=== PATIENT | male | born 1955 | race Caucasian/White ===

== ENCOUNTER → 2017-01-17 | Outpatient (CLI) | payer MEDICARE, OTHER ==
--- NOTE | 2017-01-17 08:29 | CT ---
EXAMINATION TYPE: CT chest w con DATE OF EXAM: 01/17/2017 COMPARISON: August 10, 2015 HISTORY: Multiple lung nodules CT DLP: 602.2 mGycm Automated exposure control for dose reduction was used. CONTRAST: CT scan of the chest is performed with IV Contrast, patient injected with 100 mL of Omnipaque 300. FINDINGS: LUNGS: Again noted are scattered subpleural plaques some which are calcified. There is parenchymal sc arring in the region of the right middle lobe and lingula. Stable 8 mm nodular density in the region of the lingula. No suspicious nodules or masses are identified at this point in time. No evidence for infiltrate or pleural effusion. MEDIASTINUM: There are no greater than 1 cm hilar or mediastinal lymph nodes. No pericardial effusi on is seen. Thoracic aorta is of normal caliber. The heart is not enlarged. UPPER ABDOMEN: No significant abnormality appreciated. OTHER: No additional significant abnormality is seen. IMPRESSION: 1. Asbestos-related pleural disease. 2. Stable lung nodularity.
== END | disposition home or self-care (01) ==
LOC: RADCTMAIN 07:46
PROVIDERS: ATTEND Internal Medicine Critical Care Medicine
DX: J94.8 Other specified pleural conditions (principal); R91.8 Other nonspecific abnormal finding of lung field; Z91.018 Allergy to other foods
CPT/HCPCS: 71260; Q9967

== ENCOUNTER → 2017-06-25 | Outpatient (CLI) | payer MEDICARE, OTHER ==
--- NOTE | 2017-06-29 14:01 | HM ---
HOLTER MONITOR REPORT A 48-Holter monitor. DATE OF THE STUDY: June 25, 2017. INDICATION OF THE STUDY: Heart racing. The patient was monitored for 48 hours. The baseline rhythm appeared to be a sinus mechanism with a minimum heart rate of 46 beats per minute, max heart rate 115 beats per minute, average heart rate of 67 beats per minute. Ventricular ectopic events were reported in less than 1% of the total beat count. Supraventricular ectopic events were also reported in less than 1% of the total beat count. The patient had multiple episodes of atrial tachycardia noted. No evidence of sinus pause or sinus arrest. The patient reported no symptoms. CONCLUSIONS: 1. Sinus rhythm as a baseline mechanism. 2. Rare ventricular ectopic events. 3. Rare supraventricular ectopic events. 4. No evidence of sinus pause or sinus arrest. 5. The patient had multiple episodes of atrial tachycardia noted. MMODL / IJN: [id number] /
== END | disposition home or self-care (01) ==
LOC: RADECHMAIN 13:12
PROVIDERS: ATTEND Internal Medicine Cardiovascular Disease
DX: R00.8 Other abnormalities of heart beat (principal); R07.89 Other chest pain; I25.10 Atherosclerotic heart disease of native coronary artery without angina pectoris
CPT/HCPCS: 93225; 93226

== ENCOUNTER → 2017-07-30 | Outpatient (CLI) | payer MEDICARE, OTHER ==
[2017-07-30 14:42] LABS: Basophils # (A) 0.1 k/uL (0-0.2); Basophils % (A) 1 %; Eosinophils # (A) 0.3 k/uL (0-0.7); Eosinophils % (A) 2 %; HCT 44.9 % (39.0-53.0); HGB 14.6 gm/dL (13.0-17.5); Lymphocytes # (A) 3.1 k/uL (1.0-4.8); Lymphocytes % (A) 27 %; MCHC 32.5 g/dL (31.0-37.0); Mean Platelet Volume 8.6; Monocytes % (A) 9 %; Neutrophils # (A) 6.8 k/uL (1.3-7.7); Neutrophils % (A) 59 %; Platelet Count 205 k/uL (150-450); RBC 5.04 m/uL (4.30-5.90); RDW 12.5 % (11.5-15.5); WBC 11.5 k/uL (3.8-10.6)
[2017-07-30 16:27] LABS: Erythrocyte Sedimentation Rate 7 mm/hr (0-15)
== END | disposition home or self-care (01) ==
LOC: LABWHC1 13:59
PROVIDERS: ATTEND Orthopaedic Surgery
DX: S41.002A Unspecified open wound of left shoulder, initial encounter (principal)
CPT/HCPCS: 36415; 85025; 85652; 86140

== ENCOUNTER 2018-08-01 01:19 | Emergency (ER) | payer MEDICARE, OTHER ==
[2018-08-01 01:25] VITALS: RESP 16; TEMP 98.2
[2018-08-01] MEDS ORDERED: RX INFO: IV CONTRAST WAS GIVEN 1 EACH MISC MISCELLANE PRN (01:43)
--- NOTE | 2018-08-01 01:49 | ED ---
Skin/Abscess/FB HPI - General Chief complaint: Skin/Abscess/Foreign Body Stated complaint: infection Time Seen by Provider: 08/01/18 01:29 Source: patient, EMS Mode of arrival: EMS Limitations: no limitations - History of Present Illness Initial comments: 63-year-old male patient presents to the emergency department today for evaluation of drainage from a wound to the left shoulder. Patient states that he had left shoulder "repair" approximately 5 years ago. States that at the beginning of July a small wound opened and started to drain pus. Patient states that he has been squeezing the pus out on a daily basis but today started to get eileen blood. Patient denies any pain or stiffness to the shoulder. He denies any fevers or chills with this. Denies any numbness or tingling to the extremity. Patient states he did have an appointment with orthopedics but he missed it 4 times and he is on a waiting list. He has not taking any antibiotics for this. Patient denies any recent rash, shortness breath, chest pain, abdominal pain, nausea, vomiting, diarrhea, constipation, back pain, dizziness, weakness, hematuria, dysuria, urinary urgency, urinary frequency, headache, visual changes, or any other complaints. - Related Data Home Medications Medication Instructions Recorded Confirmed Albuterol Sulfate [Proair Hfa] 1 - 2 puff INHALATION RT-Q6H PRN 11/18/14 Atenolol [Tenormin] 25 mg PO DAILY 11/18/14 10/03/15 Budesonide-Formot 160-4.5 Mcg 2 puff INHALATION RT-BID 11/18/14 10/03/15 [Symbicort 160-4.5 Mcg Inhaler] traZODone HCL [Oleptro ER] 50 mg PO HS 11/18/14 10/03/15 Albuterol Sulfate [Proair Hfa] 2 puff INHALATION DIRECTED 10/03/15 10/03/15 Simvastatin [Zocor] 20 mg PO HS 10/03/15 10/03/15 risperiDONE [RisperDAL] 2 mg PO HS 10/03/15 10/03/15 Previous Rx's Medication Instructions Recorded Hydrocodone/Acetaminophen [[place]fluence 1 tab PO Q6HR PRN #15 tab 10/03/15 5-325] methylPREDNISolone [Medrol Dose 4 mg PO DIRECTED #1 pack 10/03/15 Pack] Allergies Allergy/AdvReac Type Severity Reaction Status Date / Time No Known Allergies Allergy Verified 08/01/18 01:25 Review of Systems ROS Statement: Those systems with pertinent positive or pertinent negative responses have been documented in the HPI. ROS Other: All systems not noted in ROS Statement are negative. Past Medical History Past Medical History: COPD, Diabetes Mellitus, Hyperlipidemia, Hypertension Additional Past Medical History / Comment(s): EXPOSURE TO ASBESTOS History of Any Multi-Drug Resistant Organisms: None Reported Past Surgical History: Joint Replacement, Orthopedic Surgery Additional Past Surgical History / Comment(s): HAND KNEE Past Psychological History: Depression Smoking Status: Current every day smoker Past Alcohol Use History: None Reported Past Drug Use History: None Reported - Past Family History Mother Family Medical History: Diabetes Mellitus, Myocardial Infarction ([place]) General Exam Limitations: no limitations General appearance: alert, in no apparent distress, other (Physical well- developed, well-nourished adult male patient in no acute distress. Vital signs upon presentation are temperature 98.2F, pulse 76, respirations 16, blood pressure 143/82, pulse ox 93% on room air.) Eye exam: Present: normal appearance, PERRL, EOMI. Absent: scleral icterus, conjunctival injection, periorbital swelling ENT exam: Present: normal exam, normal oropharynx, mucous membranes moist Respiratory exam: Present: normal lung sounds bilaterally. Absent: respiratory distress, wheezes, rales, rhonchi, stridor Cardiovascular Exam: Present: regular rate, normal rhythm, normal heart sounds. Absent: systolic murmur, diastolic murmur, rubs, gallop, clicks GI/Abdominal exam: Present: soft, normal bowel sounds. Absent: distended, tenderness, guarding, rebound, rigid Extremities exam: Present: full ROM, normal capillary refill, other (Patient has purplish discoloration to the left shoulder with a healed surgical scar. Patient has small pinhole type wound noted to the anterior shoulder that is draining bloody purulent fluid. There is no erythema or swelling noted.). Absent: normal inspection, tenderness, pedal edema, joint swelling, calf tenderness Neurological exam: Present: alert, oriented X3, CN II-XII intact Psychiatric exam: Present: normal affect, normal mood Skin exam: Present: warm, dry, intact, normal color. Absent: rash Course Vital Signs 08/01/18 01:21 Temperature 98.2 F Pulse Rate 76 Respiratory 16 Rate Blood Pressure 143/82 O2 Sat by Pulse 93 L Oximetry Medical Decision Making - Medical Decision Making 63-year-old male patient presents to emergency department today for evaluation of drainage from a wound to the left shoulder. Physical examination did reveal bloody drainage coming from the left shoulder. She denies fevers, chills, pain or swelling to the area. He states that this has been going on for over a month. Did perform labs White blood cell count is normal. Lactic acid is normal. Patient is afebrile with normal vital signs. We will start Keflex and discharged home. He is instructed to follow-up with Dr. Doherty for further evaluation. Return parameters were discussed in detail. He verbalizes understanding and agrees with this plan. - Lab Data Result diagrams: 08/01/18 02:00 08/01/18 02:00 Lab Results 08/01/18 08/01/18 08/01/18 Range/Units 02:00 02:00 02:00 WBC 9.7 (3.8-10.6) k/uL RBC 5.38 (4.30-5.90) m/uL Hgb 15.7 (13.0-17.5) gm/dL Hct 46.2 (39.0-53.0) % MCV 85.9 (80.0-100.0) fL MCH 29.1 (25.0-35.0) pg MCHC 33.9 (31.0-37.0) g/dL RDW 12.9 (11.5-15.5) % Plt Count 207 (150-450) k/uL Neutrophils % 59 % Lymphocytes % 29 % Monocytes % 8 % Eosinophils % 2 % Basophils % 1 % Neutrophils # 5.7 (1.3-7.7) k/uL Lymphocytes # 2.8 (1.0-4.8) k/uL Monocytes # 0.8 (0-1.0) k/uL Eosinophils # 0.2 (0-0.7) k/uL Basophils # 0.1 (0-0.2) k/uL Sodium 137 (137-145) mmol/L Potassium 3.7 (3.5-5.1) mmol/L Chloride 100 (98-107) mmol/L Carbon Dioxide 28 (22-30) mmol/L Anion Gap 9 mmol/L BUN 25 H (9-20) mg/dL Creatinine 0.93 (0.66-1.25) mg/dL Est GFR (CKD-EPI)AfAm >90 (>60 ml/min/1.73 sqM) Est GFR (CKD-EPI)NonAf 87 (>60 ml/min/1.73 sqM) Glucose 100 H (74-99) mg/dL Plasma Lactic Acid Cameron 0.8 (0.7-2.0) mmol/L Calcium 9.3 (8.4-10.2) mg/dL Total Bilirubin 0.4 (0.2-1.3) mg/dL AST 18 (17-59) U/L ALT 26 (21-72) U/L Alkaline Phosphatase 92 (38-126) U/L Total Protein 6.7 (6.3-8.2) g/dL Albumin 3.5 (3.5-5.0) g/dL - Radiology Data Radiology results: report reviewed, image reviewed CT of the left shoulder with contrast was obtained. Report was reviewed in its entirety. Impression by Dr. Sow shows questionable ulceration involving the anterior superior shoulder skin surface anterior to the acromial process. In addition, there is increased soft tissue density in the subcutaneous fat a curvilinear area which extends inferiorly and anteriorly and appears to be superficial to the shoulder musculature measuring 9 mm in thickness by approximate 5.4 cm transverse by approximate 5.97 L craniocaudal. This may represent postsurgical changes/scarring. However, hyperdense curvilinear area anteriorly may represent a slightly infiltrating subcutaneous hematoma. Cellulitis is difficult to entirely excluded given this appearance. Please correlate clinically. No obvious loculated fluid collection is identified. Nonemergent MRI would with contrast would be better to provide greater soft tissue evaluation. Postsurgical changes consistent with a tendon anchors involving the greater tubercle. No acute traumatic injury or abnormal alignment. No erosive changes to suggest CT evidence for osteomyelitis Disposition Clinical Impression: Hematoma, Wound of left shoulder Disposition: HOME SELF-CARE Condition: Good Instructions (If sedation given, give patient instructions): Hematoma (ED), Acute Wound Care (ED) Additional Instructions: Keep clean dressings over the wound. Follow-up with Dr. Almodovar of reevaluation as soon as possible. Return to the emergency department immediately for any new , worsening, or concerning symptoms. Is patient prescribed a controlled substance at d/c from ED?: No Referrals: Ana Marina MD [Primary Care Provider] - 1-2 days Time of Disposition: 04:27
[2018-08-01 02:13] LABS: Basophils # (A) 0.1 k/uL (0-0.2); Basophils % (A) 1 %; Eosinophils # (A) 0.2 k/uL (0-0.7); Eosinophils % (A) 2 %; HCT 46.2 % (39.0-53.0); HGB 15.7 gm/dL (13.0-17.5); Lymphocytes # (A) 2.8 k/uL (1.0-4.8); Lymphocytes % (A) 29 %; MCH 29.1 pg (25.0-35.0); MCHC 33.9 g/dL (31.0-37.0); MCV 85.9 fL (80.0-100.0); Mean Platelet Volume 7.7; Monocytes # (A) 0.8 k/uL (0-1.0); Monocytes % (A) 8 %; Neutrophils # (A) 5.7 k/uL (1.3-7.7); Neutrophils % (A) 59 %; Platelet Count 207 k/uL (150-450); RBC 5.38 m/uL (4.30-5.90); RDW 12.9 % (11.5-15.5); WBC 9.7 k/uL (3.8-10.6)
[2018-08-01 02:23] LABS: ALT 26 U/L (21-72); AST 18 U/L (17-59); Albumin 3.5 g/dL (3.5-5.0); Alkaline Phosphatase 92 U/L (38-126); Anion Gap 9 mmol/L; Blood Urea Nitrogen 25 mg/dL (9-20); Calcium 9.3 mg/dL (8.4-10.2); Carbon Dioxide 28 mmol/L (22-30); Chloride 100 mmol/L (98-107); Glucose 100 mg/dL (74-99); Potassium 3.7 mmol/L (3.5-5.1); Sodium 137 mmol/L (137-145); Total Bilirubin 0.4 mg/dL (0.2-1.3); Total Protein 6.7 g/dL (6.3-8.2)
--- NOTE | 2018-08-01 03:49 | CT ---
EXAM: CT Left Upper Extremity With Intravenous Contrast, Shoulder CLINICAL HISTORY: Pain and bleeding at injection site from rotator cuff surgery 3 years previous. TECHNIQUE: Axial computed tomography images of the left shoulder with intravenous contrast. DLP is 667.5 mGy-cm. This CT exam was performed using one or more of the following dose reduction techniques: automated exposure control, adjustment of the mA and/or kV according to patient size, and/or use of iterative reconstruction technique. 3D reconstructed images were created and reviewed. COMPARISON: No relevant prior studies available. FINDINGS: Bones/joints: There is mild superior subluxation of the humeral head in relation to the glenoid fossa. No joint effusion. No evidence for erosive osseous erosive change. The acromioclavicular joint is slightly widened. No acute fracture. Soft tissues: There is questionable ulceration involving the anterosuperior shoulder skin surface anterior to the acromial process (series 204; image 13). In addition, there is increased soft tissue density of the subcutaneous fat and a curvilinear area which extends inferiorly and anteriorly and appears to be superficial to the shoulder musculature measuring 9 mm in thickness by approximately 5.4 cm transverse by approximately 5.9 cm craniocaudal. Tendon anchors are noted involving the greater tubercle. Lung apices: Pleural calcification is incidentally noted involving the visualized lateral left lung. IMPRESSION: Questionable ulceration involving the anterosuperior shoulder skin surface anterior to the acromial process. In addition, there is increased soft tissue density of the subcutaneous fat and a curvilinear area which extends inferiorly and anteriorly and appears to be superficial to the shoulder musculature measuring 9 mm in thickness by approximately 5.4 cm transverse by approximately 5.9 cm craniocaudal. This may represent postsurgical changes/scarring. However, hyperdense curvilinear area anteriorly may represent a slightly infiltrating subcutaneous hematoma. Cellulitis is difficult to entirely exclude given this appearance. Please correlate clinically. No obvious loculated fluid collection identified. Nonemergent MRI would with contrast may provide greater soft tissue evaluation, as clinically appropriate. Postsurgical changes consistent with a tendon anchors involving the greater tubercle. No acute traumatic injury or abnormal alignment. No erosive change to suggest CT evidence for osteomyelitis.
[2018-08-01] MEDS ORDERED: CEPHALEXIN 500MG STARTER PACK 4 CAP BTL PO STA (04:24)
[2018-08-01 04:37] VITALS: BP 140/70; PULSE 75
== END 2018-08-01 04:40 | disposition home or self-care (01) ==
LOC: EC 01:19
DX: L76.32 Postprocedural hematoma of skin and subcutaneous tissue following other procedure (principal); J44.9 Chronic obstructive pulmonary disease, unspecified; E78.5 Hyperlipidemia, unspecified; I10 Essential (primary) hypertension; F32.9 Major depressive disorder, single episode, unspecified; F17.200 Nicotine dependence, unspecified, uncomplicated; Z79.51 Long term (current) use of inhaled steroids; Z79.899 Other long term (current) drug therapy; Z96.659 Presence of unspecified artificial knee joint; Z96.698 Presence of other orthopedic joint implants
CPT/HCPCS: 36415; 80053; 83605; 85025; 87040; 87070; 87205; 99284

== ENCOUNTER → 2020-09-07 | Outpatient (CLI) | payer MEDICARE, OTHER ==
[2020-09-07 11:56] LABS: African American GFR (CKD) >90 (>60 ml/min/1.73 sqM); Blood Urea Nitrogen 11 mg/dL (9-20); Non-African American GFR(CKD) 89 (>60 ml/min/1.73 sqM)
--- NOTE | 2020-09-07 12:33 | CT ---
EXAMINATION TYPE: CT chest w con DATE OF EXAM: 09/07/2020 COMPARISON: 01/17/2017 HISTORY: Shortness of breath with history of COPD CT DLP: 632.7 mGycm Automated exposure control for dose reduction was used. TECHNIQUE: CT scan of the chest is performed with IV Contrast, patient injected with 100 mL of Isovue 300. MIP Images are created on CT scanner and reviewed. 3D reconstructed images are created on an independent workstation and reviewed. FINDINGS: LUNGS: Again noted are scattered subpleural plaques some which are calcified. There is parenchymal sc arring in the region of the right middle lobe and lingula. Stable 8 mm nodular density in the region of the lingula. No suspicious nodules or masses are identified at this point in time. No evidence for infiltrate or pleural effusion. Round grafts left pleural changes are seen bilaterally. Subsegmental areas of consolidation are noted there is pleural thickening with calcification. MEDIASTINUM: There are no greater than 1 cm hilar or mediastinal lymph nodes. Heart size is prominent . Atherosclerotic changes aorta. Aorta of normal caliber. Calcification the aortic valve suggesting. Coronary artery calcification noted. OTHER: Hypertrophic and degenerative changes of the spine. Postsurgical change involving the left sh oulder.. IMPRESSION: 1. Findings compatible with asbestos related disease. Stable subpleural nodularity. 2. There remain scattered areas of groundglass attenuation in the periphery of the lungs and may repr esent a mild pneumonitis correlate clinically.
== END | disposition home or self-care (01) ==
LOC: RADCTMAIN 11:06
PROVIDERS: ATTEND Internal Medicine Critical Care Medicine
DX: R91.1 Solitary pulmonary nodule (principal); J44.9 Chronic obstructive pulmonary disease, unspecified
CPT/HCPCS: 82565; 84520; 71260; 36415; Q9967